=== PATIENT | male | born 2005 | race Caucasian/White ===

== ENCOUNTER 2025-10-09 02:47 | Inpatient (IN) ==
[2025-10-09] MEDS: FAMOTIDINE 20MG IV PUSH 20 MG/5 ML SYR IV STA (03:09)
[2025-10-09] MEDS: ONDANSETRON INJ 2 MG/ML 2 ML VIAL IV STA ×2 (03:09→04:30)
[2025-10-09] MEDS: SODIUM CHLORIDE 0.9% 2,000 ML IV SCH (03:09)
--- NOTE | 2025-10-09 03:17 | Emergency Department Note ---
History of Present Illness General Chief complaint: Vomiting Stated complaint: VOMITING Time Seen by Provider: 10/09/25 02:56 History of Present Illness Maximum Pain Intensity: 8 This 20-year-old who drinks daily presents ER complaining of hematemesis and abdominal pain. Patient states earlier today he was funneling beers and then projectile vomited them. He states shortly after that he developed severe abdominal pain and then tonight he threw up a large amount of blood. The sister took a picture and a video and did show me this. No history of GI bleeding in the past. He also complains of chest pain and has traveled to [facility] and back recently. No family history of clotting disorder. Patient denies fever, chills, leg pain or swelling. He states normally he is healthy with no active medical problems. Allergies Allergy/AdvReac Type Severity Reaction Status Date / Time Penicillins Allergy Swelling Verified 10/09/25 05:10 of Lip/Tongue/Throat Past Med/Surg History Problem List (Updated 10/09/25 @ 15:59 by Cachorro Cardona MD) Gabby-Calabrese tear Encounter for pre-operative examination Alcohol intoxication Acute upper gastrointestinal bleeding (Acute) Medical History ETOH abuse Surgical History (Updated 10/09/25 @ 07:59 by Yasmany Contreras MD) Hx of wisdom tooth extraction Social History Smoking Status: Current some day smoker (vapes) Tobacco Type: E-cigarettes / Vaping Hx Alcohol Use: Yes Alcohol type: hard liquor Hx Substance Use: No Preferred Language: [employer] Chair Required: No Beliefs That Will Affect Care: None Current Living Situation: Other Current Living Situation Comment: 3 roommates (college student) Feels Safe at Home: Yes Assistive Devices: None Review of Systems A total of 10 systems reviewed and were otherwise negative Physical Exam Vital Signs Vital Signs - 24 hr 10/09/25 02:51 10/09/25 03:17 10/09/25 03:22 Temperature 36.7 C Temperature Source Oral Pulse Rate 125 H 87 Pulse Rate [Right Finger] 78 Pulse Rhythm Regular Regular Pulse Rhythm [Right Finger] Regular Pulse Strength Normal Respiratory Rate 18 18 20 Respiratory Effort / Characteristics Non-Labored Spontaneous Non-Labored Respiratory Depth Normal Normal Respiratory Pattern Regular Blood Pressure 113/74 Blood Pressure [Left Arm] 119/69 Blood Pressure Mean 87 Blood Pressure Mean [Left Arm] 85 Blood Pressure Position Sitting Pulse Oximetry 98 100 100 Oxygen Delivery Method Room Air Room Air Room Air Sepsis Recent Fever Within 48 Hours No Sepsis New/Unexplained Change in Mental Status N/A Sepsis Action Taken by Nursing No Action Required 10/09/25 04:00 10/09/25 05:00 10/09/25 05:07 Temperature Temperature Source Pulse Rate 74 Pulse Rate [Right Finger] 75 69 Pulse Rhythm Pulse Rhythm [Right Finger] Regular Regular Pulse Strength Respiratory Rate 16 18 Respiratory Effort / Characteristics Non-Labored Non-Labored Respiratory Depth Normal Normal Respiratory Pattern Blood Pressure Blood Pressure [Left Arm] 129/66 124/83 Blood Pressure Mean Blood Pressure Mean [Left Arm] 87 96 Blood Pressure Position Pulse Oximetry 100 99 Oxygen Delivery Method Room Air Room Air Sepsis Recent Fever Within 48 Hours Sepsis New/Unexplained Change in Mental Status Sepsis Action Taken by Nursing VITALS: Vitals are noted on the nurse's note and reviewed by myself. Vital signs mildly tachycardic. GENERAL: White male speaking in full sentences with sister present, in no acute distress, nondiaphoretic, well-developed well-nourished. SKIN: The skin was without rashes, erythema, edema, or bruising. There is no tenting of the skin. Capillary reflex less than 2 seconds. HEAD: Normocephalic atraumatic. EARS: External auditory canals clear EYES: Pupils equal round and reactive to light and accommodation. Conjunctivae without injection, sclerae without icterus. Extraocular movements intact. NOSE: Patent, no discharge. MOUTH: Mucous membranes moist. Pharynx without erythema or exudate. Uvula midline. Airway patent. Tongue does not deviate. NECK: Supple without nuchal rigidity. No lymphadenopathy. No thyromegaly. Cervical spine is nontender. No JVD. HEART: Regular rate and rhythm LUNGS: Clear to auscultation bilaterally without wheezes, rales or rhonchi. No retractions or accessory muscle use. ABDOMEN: Positive bowel sounds x 4. Normal tympanic percussion. Soft, tender epigastric region, without masses or organomegaly. Wood sign negative. No guarding or rebound tenderness. No CVA tenderness MUSCULOSKELETAL: No muscle atrophy, erythema, or edema noted. NEURO: Patient was alert and oriented to person place and time. Normal sensation to light and sharp touch. No focal neurological deficits. Course Administered Medications Lactated Ringer's (Lr) 1,000 mls @ 75 mls/hr IV .[id number] BARBARA Stop: 10/12/25 05:29 Last Admin: 10/09/25 05:38 Dose: 75 mls/hr Documented By: BELGICA Pantoprazole Sodium (Protonix) 40 mg in 10 mls @ 5 mls/min IV BID BARBARA Stop: 11/08/25 08:59 Last Admin: 10/09/25 20:33 Dose: 5 mls/min Documented By: Admin: 10/09/25 07:59 Dose: 5 mls/min Documented By: WARREN Folic Acid 1 mg/ Syringe 10 mls @ 5 mls/min IV QAM BARBARA Stop: 11/08/25 08:59 Last Admin: 10/09/25 07:59 Dose: 5 mls/min Documented By: WARREN Thiamine HCl 100 mg/ Syringe 10 mls @ 2 mls/min IV QAM BARBARA Stop: 11/08/25 08:59 Last Admin: 10/09/25 07:59 Dose: 2 mls/min Documented By: WARREN Miscellaneous (Icu Protocol For Hyperglycemia) 1 each N/A ACHS BARBARA Stop: 10/11/25 07:29 Last Admin: 10/09/25 20:31 Dose: Not Given Documented By: Admin: 10/09/25 16:35 Dose: Not Given Documented By: Admin: 10/09/25 11:39 Dose: 1 each Documented By: Admin: 10/09/25 07:15 Dose: 1 each Documented By: WARREN Discontinued Medications Sodium Chloride (Nss) 2,000 mls @ 999 mls/hr IV .Q2H1M BARBARA Stop: 10/09/25 05:15 Last Infusion: 10/09/25 05:50 Dose: Infused Documented By: Admin: 10/09/25 03:09 Dose: 999 mls/hr Documented By: BELGICA Famotidine (Pepcid 20mg Iv Push) 20 mg in 5 mls @ 2.5 mls/min IV NOW STA Stop: 10/09/25 03:02 Last Admin: 10/09/25 03:09 Dose: 2.5 mls/min Documented By: BELGICA Pantoprazole Sodium 80 mg/ (Dextrose) 120 mls @ 480 mls/hr IV ONE STA Stop: 10/09/25 03:15 Last Infusion: 10/09/25 03:46 Dose: Infused Documented By: Admin: 10/09/25 03:25 Dose: 480 mls/hr Documented By: BELGICA Potassium Chloride (K Miguel / Wtr) 10 meq in 100 mls @ 100 mls/hr IV Q1H BARBARA Stop: 10/09/25 05:59 Last Infusion: 10/09/25 06:19 Dose: Infused Documented By: [id number] Admin: 10/09/25 05:16 Dose: 100 mls/hr Documented By: Infusion: 10/09/25 05:16 Dose: Infused Documented By: Admin: 10/09/25 04:17 Dose: 100 mls/hr Documented By: BELGICA Lactated Ringer's (Lr) 1,000 mls @ 999 mls/hr IV .Q1H1M ONE Stop: 10/09/25 05:01 Last Infusion: 10/09/25 06:19 Dose: Infused Documented By: [id number] Admin: 10/09/25 04:09 Dose: 999 mls/hr Documented By: BELGICA Ceftriaxone Sodium (Rocephin) 2,000 mg in 50 mls @ 100 mls/hr IV NOW STA Stop: 10/09/25 05:31 Last Infusion: 10/09/25 05:49 Dose: Infused Documented By: Admin: 10/09/25 05:19 Dose: 100 mls/hr Documented By: BELGICA Octreotide Acetate 500 mcg/ (Dextrose) 100.5 mls @ 10.05 mls/hr IV .Q10H BARBARA Stop: 11/08/25 05:14 Last Admin: 10/09/25 05:45 Dose: Not Given Documented By: ZAHEER Octreotide Acetate 50 mcg/ (Syringe) 10 mls @ 3 mls/min IV NOW STA Stop: 10/09/25 05:06 Last Admin: 10/09/25 05:44 Dose: Not Given Documented By: ZAHEER Magnesium Sulfate/Dextrose (Magnesium Sulfate / D5w) 1 gm in 100 mls @ 100 mls/hr IV Q1H BARBARA Stop: 10/09/25 07:24 Last Infusion: 10/09/25 08:12 Dose: Infused Documented By: Admin: 10/09/25 06:43 Dose: 100 mls/hr Documented By: [id number] Infusion: 10/09/25 06:39 Dose: Infused Documented By: [id number] Admin: 10/09/25 05:39 Dose: 100 mls/hr Documented By: BELGICA Magnesium Sulfate/Dextrose (Magnesium Sulfate / D5w) 1 gm in 100 mls @ 50 mls/hr IV Q2H BARBARA Stop: 10/09/25 11:59 Last Infusion: 10/09/25 13:26 Dose: Infused Documented By: Admin: 10/09/25 11:01 Dose: 50 mls/hr Documented By: Infusion: 10/09/25 10:42 Dose: Infused Documented By: Infusion: 10/09/25 09:56 Dose: 50 mls/hr Documented By: Infusion: 10/09/25 09:12 Dose: 0 mls/hr Documented By: Admin: 10/09/25 07:58 Dose: 50 mls/hr Documented By: WARREN Potassium Chloride (K Miguel / Wtr) 10 meq in 100 mls @ 100 mls/hr IV Q1H BARBARA Stop: 10/09/25 09:14 Last Infusion: 10/09/25 11:06 Dose: Infused Documented By: Admin: 10/09/25 09:57 Dose: 100 mls/hr Documented By: Infusion: 10/09/25 08:32 Dose: Infused Documented By: Admin: 10/09/25 07:32 Dose: 100 mls/hr Documented By: Infusion: 10/09/25 07:30 Dose: Infused Documented By: Admin: 10/09/25 06:30 Dose: 100 mls/hr Documented By: [id number] Ioversol (Optiray 320 125ml) 118 ml IV ONCE ONE Stop: 10/09/25 03:39 Last Admin: 10/09/25 03:38 Dose: 118 ml Documented By: KSF Metoclopramide HCl (Metoclopramide Hcl Inj 5 Mg/Ml 2 Ml Vial) 10 mg IV NOW STA Stop: 10/09/25 05:52 Last Admin: 10/09/25 06:30 Dose: 10 mg Documented By: [id number] Ondansetron HCl (Ondansetron Inj 2 Mg/Ml 2 Ml Vial) 4 mg IV ONE STA Stop: 10/09/25 03:02 Last Admin: 10/09/25 03:09 Dose: 4 mg Documented By: BELGICA Ondansetron HCl (Ondansetron Inj 2 Mg/Ml 2 Ml Vial) 4 mg IV NOW STA Stop: 10/09/25 04:28 Last Admin: 10/09/25 04:30 Dose: 4 mg Documented By: ZAHEER Critical Care Time Critical Care Time: Yes Total Critical Care Time: 65 I have personally spent 65 minutes of critical care time in the direct management of this patient. This includes bedside care, interpretation of diagnostic studies, and testing, discussion with consultants, patient, and family members, and other required patient management activities. This 65 minutes is in excess of all separately billable procedures. Medical Decision Making Medical Records Attestation: I reviewed the patient's medical records. Home Medications Current Medication List: was personally reviewed by me Laboratory Data Attestation: I reviewed the patient's lab results. 10/09/25 04:06 10/09/25 03:08 Lab Results 10/09/25 10/09/25 10/09/25 Range/Units 03:08 03:13 04:06 WBC 14.86 H (4.8-10.8) K/ul RBC 4.69 L (4.70-6.10) M/uL Hgb 15.0 11.4 L D (14.0-18.0) g/dL POC Hgb 15.3 (14.0-18.0) g/dl Hct 41.8 L 32.7 L (42.0-52.0) % POC Hct 45 (42-52) % MCV 89.1 (80.0-100.0) fL MCH 32.0 (25.0-34.0) pg MCHC 35.9 (32.0-36.0) g/dL RDW Std Deviation 38.8 (36.4-46.3) fL RDW Coeff of Melony 12.0 (11.5-14.5) % Plt Count 303 (130-400) K/uL MPV 9.4 (9.4-12.4) fL Immature Gran % (Auto) 0.3 % Neut % (Auto) 75.9 % Lymph % (Auto) 15.7 % [place] % (Auto) 6.5 % Eos % (Auto) 1.3 % Baso % (Auto) 0.3 % Neut # (Auto) 11.26 H (1.40-6.50) K/uL Lymph # (Auto) 2.33 (1.20-3.40) K/uL [place] # (Auto) 0.97 H (0.11-0.59) K/uL Eos # (Auto) 0.20 (0.00-0.50) K/uL Baso # (Auto) 0.05 (0.00-0.20) K/uL Immature Gran # (Auto) 0.05 (0.01-0.20) K/uL PT 10.7 (9.0-12.0) Seconds INR 1.0 (0.9-1.1) APTT 25 (21-31) Seconds PTT Ratio 0.9 POC Sodium 141 (135-144) mmol/L Sodium 139 (136-145) mmol/L POC Potassium 3.3 (3.3-5.0) mmol/L Potassium 3.4 L (3.5-5.1) mmol/L POC Chloride 104 (101-112) mmol/L Chloride 104 (98-107) mmol/L Carbon Dioxide 19 L (21-32) mmol/L POC Total CO2 19 L (24-31) mmol/L Anion Gap 16 H (3-11) POC Anion Gap 23.0 (16-25) mmol/L POC BUN 23 H (7-18) mg/dl BUN 22 (6-23) mg/dl Creatinine 0.99 (0.6-1.4) mg/dl POC Creatinine 1.3 (0.6-1.3) mg/dl Est Cr Clr Drug Dosing 113.2 ml/min eGFR 111.15 BUN/Creatinine Ratio 22.2 H (10-20) Glucose 97 (70-99(Fasting)) mg/dl POC Glucose (other) 96 (70-99) mg/dl Calcium 10.0 (8.6-10.3) mg/dl POC Ioniz Calcium Abrahan 1.06 L (1.12-1.32) mmol/l Magnesium 1.5 L (1.7-2.4) mg/dl Total Bilirubin 0.6 (0.2-1.0) mg/dl AST 33 (13-39) U/L ALT 36 (7-52) U/L Alkaline Phosphatase 57 (34-104) U/L Troponin I High Sens < 2.3 (0-20) pg/ml Total Protein 8.3 (6.0-8.3) gm/dl Albumin 5.0 (3.4-5.0) gm/dl Globulin 3.3 (2.5-4.0) gm/dl Albumin/Globulin Ratio 1.5 (0.9-2) Lipase 19 (11-82) U/L Ethyl Alcohol mg/dL 71.0 H (<10.0) mg/dl Blood Type A Positive Antibody Screen NEGATIVE Imaging Data Attestation: I personally reviewed and interpreted this imaging study as follows: Radiologist's Impression: Abdomen/Pelvis CT 10/09/25 03:01 EXAM: CT abd pelvis IV con only CLINICAL HISTORY: Severe epigastric pain, hematemesis TECHNIQUE: Contiguous axial images were obtained from the level of the diaphragm to the pubic symphysis with intravenous contrast. Coronal and sagittal reconstructions were likewise performed and indicated to increase the sensitivity for detecting clinically relevant pathology. If IV contrast material had not been administered, the likelihood of detecting abnormalities relevant to the patient's condition would have been substantially decreased. CT scan was performed according to ALARA (as low as reasonably achievable). COMPARISON: None. FINDINGS: The visualized lung bases are clear. The liver is normal in size and attenuation. No focal liver lesions are seen. There is no intra or extrahepatic biliary ductal dilatation. Hepatic vasculature is patent. The gallbladder is present. The spleen, pancreas, and adrenal glands are unremarkable. The kidneys are normal in size and attenuation. There is no hydronephrosis or perinephric fat stranding. No renal calculi or renal masses are identified. The ureters are normal in caliber and no ureteral calculi are seen. The bladder is normal in contour. Pelvic viscera are unremarkable. No focal or diffuse bowel wall thickening or evidence of bowel obstruction is identified. No imaging evidence of appendicitis. Abdominal and pelvic vasculature is patent. No adenopathy or fluid collections are seen. No aggressive appearing osseous lesions are identified. Mild mucosal edema is noted involving gastric cardia and adjacent to the gastroesophageal junction. - possibility of inflammatory changes. IMPRESSION: Mild mucosal edema is noted involving gastric cardia and adjacent to the gastroesophageal junction. - possibility of inflammatory changes. No other acute intra abdominal abnormality seen. Electronically signed by Wale Robles 10-09-2025 04:24 AM Chest CTA 10/09/25 03:01 EXAM: CT angio chest PE protocol CLINICAL HISTORY: PE, recent travel, hematemesis TECHNIQUE: Contiguous axial images were obtained from the neck base through the upper abdomen following intravenous administration of iodinated contrast material. Angiographic images were processed, 3D MIP images were acquired for interpretation. If IV contrast material had not been administered, the likelihood of detecting abnormalities relevant to the patient's condition would have been substantially decreased. Coronal and sagittal 3-D MIPs were likewise performed and indicated to increase the sensitivity of detectin diffuse clinically relevant pathology. CT scan was performed according to ALARA (as low as reasonably achievable). COMPARISON: None. FINDINGS: Adequate contrast bolus without evidence of pulmonary embolism. The central airways are patent. The lungs are clear. No pleural effusion. The heart, aorta, and pulmonary arteries are of normal size and configuration. There are no appreciable coronary artery and aortic atherosclerotic calcifications. No pericardial effusion is identified. The thyroid is unremarkable. No mediastinal, hilar, or axillary lymphadenopathy is noted. No suspicious lytic or sclerotic osseous lesions are identified. IMPRESSION: 1. No evidence of pulmonary embolism or pulmonary disease. 2. Suggestion of edematous wall thickening of lower thoracic oesophagus and gastro-esophageal junction. Electronically signed by Wale Robles 10-09-2025 04:28 AM Chest X-Ray 10/09/25 03:01 EXAM: XR chest 1V portable CLINICAL HISTORY: Hematemesis TECHNIQUE: An X-ray image of the chest is obtained in AP projection. 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 FINDINGS: Pulmonary Parenchyma: Lungs are clear bilaterally. No evidence of consolidation, collapse, or focal opacities. No pulmonary nodules are identified. No evidence of pleural effusion or pleural thickening. Heart and Mediastinum: Heart size and shape are normal. No mediastinal widening or masses. No hilar or mediastinal lymphadenopathy. Bony Thorax: Bony thorax appears intact without fractures or deformities. Soft Tissues: Soft tissues overlying the chest wall are unremarkable. IMPRESSION: No acute cardiopulmonary abnormalities are identified. No significant interval changes from the prior study. Electronically signed by Ángel Lindo 10-09-2025 04:40 AM MDM Narrative Prior records/ancillary studies reviewed. Triage Nursing notes reviewed. Additional history obtained from the family. The patient's history was concerning for possible gastrointestinal bleeding. Differential diagnosis: Etiologies such as diverticulosis, AVM, coagulopathy, colitis, inflammatory bowel disease, malignancy, Gabby-Calabrese tear, esophagitis, peptic ulcer disease, variceal bleed, gastritis, epistaxis, fissure, hemorrhoids, as well as others were entertained. Physical exam: As above. The patients vital signs were stable. ER treatment provided: An order was placed for continuous cardiac monitoring. The monitor shows a rate of 60-1 20 with a sinus rhythm per my interpretation. 2 IV lines, i-STAT, type and screen, patient was consented to blood if warranted, Protonix, Pepcid, Zofran were all ordered Patient was also given octreotide and Rocephin. He was then crossmatched for unit of blood after repeat H&H was much lower. I spoke to CAT scan and informed them I was worried about Boerhaave's, active stomach ulcer bleeding, PE or active bleeding. On reassessment the patient felt better. Diagnostics interpreted by me: ECG: Ordered for GI bleed Normal sinus, poor baseline, no acute ST-T wave changes, rate 85. Impression normal sinus rhythm poor baseline independently interpreted by myself The labs Independently Interpreted by myself revealed leukocytosis, stable H&H, potassium 3.4 and this is replaced intravenously, negative troponin, alcohol 71 Type and screen was sent Repeat H&H was much lower and I did notify the resident and she will write for a unit of blood. Imaging studies: Imaging was reviewed and read by radiology Consultation: A consultation was placed with the hospitalist. The case was discussed and diagnostics were reviewed. The patient was evaluated in the ER for further treatment. Consultation was placed with GI and the case discussed. Dr. Delaney would like to be called back once the imaging has been read by radiology. Scans were reviewed with GI and recommends medical admission to the unit and will scope the patient in the morning. NPO. Continue the Protonix and Pepcid. The ICU was consulted and the case was discussed. Paulette will come down and see the patient. This appears to be consistent with upper GI bleed with active hematemesis most likely from Gabby-Calabrese tear. Patient had a large amount of hematemesis in the ER. He also had a large amount at home. He was immediately started on Protonix Pepcid Zofran and IV fluids. 2 lines were placed. I-STAT was ordered. He was typed and screened and crossmatch for blood if warranted. He was consented. Repeat H&H was ordered. He was reassessed multiple times. Vital signs improved. GI was consulted immediately after seeing the patient. GI recommends medical admission to the unit for endoscopy in the morning. Unit and medicine were consulted. Patient was admitted to the medical service. Patient is agreeable. By the evaluation outlined above emergent etiologies such as esophageal perforation, variceal bleed, coagulopathy, epistaxis, malignancy, inflammatory bowel disease, as well as others were deemed relatively unlikely. The pt informed about the findings as listed above. All questions were answered and pleased with the treatment. The chart was completed utilizing [employer] Speech voice recognition software. Grammatical errors, random word insertions, pronoun errors, and incomplete sentences are an occassional consequence of this system due to software limitations, ambient noise, and hardware issues. Any formal questions or concerns about the content, text, or information contained within the body of this dictation should be directly addressed to the physician hospital nursing assistant for clarification. Impression & Plan Acute upper gastrointestinal bleeding Discharge Plan Visit Data Chief Complaint: Vomiting Stated Complaint: VOMITING ED Provider: Elmo Moon ED Midlevel Provider: Trinidad Martínez Discharge Problem: Acute upper gastrointestinal bleeding Patient Disposition: Admitted As Inpatient Condition: Fair Discharge Instructions Interventions: ED Discharge Assessment Last Done: 10/09/25 06:35
[2025-10-09 03:28] LABS: Hematocrit (blood only) 41.8 % (42.0-52.0); Hemoglobin 15.0 g/dL (14.0-18.0); Immature Granulocytes # (auto) 0.05 K/uL (0.01-0.20); Immature Granulocytes % (auto) 0.3 %; Mean Corpuscular Hemoglobin 32.0 pg (25.0-34.0); Mean Corpuscular Volume 89.1 fL (80.0-100.0); Platelet Count 303 K/uL (130-400); RDW Standard Deviation 38.8 fL (36.4-46.3); Red Blood Count 4.69 M/uL (4.70-6.10); White Blood Count 14.86 K/ul (4.8-10.8)
[2025-10-09] MEDS: OPTIRAY 320 125ml IV ONE (03:38)
[2025-10-09 03:46] LABS: Alanine Aminotransferase 36 U/L (7-52); Albumin Globulin Ratio 1.5 (0.9-2); Albumin Level 5.0 gm/dl (3.4-5.0); Alkaline Phosphatase 57 U/L (34-104); Anion Gap 16 (3-11); Bilirubin,Total 0.6 mg/dl (0.2-1.0); Blood Urea Nitrogen 22 mg/dl (6-23); Calcium 10.0 mg/dl (8.6-10.3); Carbon Dioxide 19 mmol/L (21-32); Chloride 104 mmol/L (98-107); Creatinine Clr Calc Pharmacy 113.2 ml/min; Globulin 3.3 gm/dl (2.5-4.0); Glucose 97 mg/dl (70-99(Fasting)); Lipase 19 U/L (11-82); Potassium 3.4 mmol/L (3.5-5.1); Sodium 139 mmol/L (136-145); Total Protein 8.3 gm/dl (6.0-8.3)
[2025-10-09 04:09] LABS: INR 1.0 (0.9-1.1); Partial Thromboplastin Time 25 Seconds (21-31); Prothrombin Time 10.7 Seconds (9.0-12.0)
[2025-10-09] MEDS: LACTATED RINGER'S 1,000 ML IV ONE (04:09)
[2025-10-09] MEDS: POTASSIUM CHLORIDE / WTR 10 MEQ/100 ML PLCT IV SCH ×2 (04:17→06:30)
--- NOTE | 2025-10-09 04:25 | CT Scan Report ---
EXAM: CT abd pelvis IV con only CLINICAL HISTORY: Severe epigastric pain, hematemesis TECHNIQUE: Contiguous axial images were obtained from the level of the diaphragm to the pubic symphysis with intravenous contrast. Coronal and sagittal reconstructions were likewise performed and indicated to increase the sensitivity for detecting clinically relevant pathology. If IV contrast material had not been administered, the likelihood of detecting abnormalities relevant to the patient's condition would have been substantially decreased. CT scan was performed according to ALARA (as low as reasonably achievable). COMPARISON: None. FINDINGS: The visualized lung bases are clear. The liver is normal in size and attenuation. No focal liver lesions are seen. There is no intra or extrahepatic biliary ductal dilatation. Hepatic vasculature is patent. The gallbladder is present. The spleen, pancreas, and adrenal glands are unremarkable. The kidneys are normal in size and attenuation. There is no hydronephrosis or perinephric fat stranding. No renal calculi or renal masses are identified. The ureters are normal in caliber and no ureteral calculi are seen. The bladder is normal in contour. Pelvic viscera are unremarkable. No focal or diffuse bowel wall thickening or evidence of bowel obstruction is identified. No imaging evidence of appendicitis. Abdominal and pelvic vasculature is patent. No adenopathy or fluid collections are seen. No aggressive appearing osseous lesions are identified. Mild mucosal edema is noted involving gastric cardia and adjacent to the gastroesophageal junction. - possibility of inflammatory changes. IMPRESSION: Mild mucosal edema is noted involving gastric cardia and adjacent to the gastroesophageal junction. - possibility of inflammatory changes. No other acute intra abdominal abnormality seen. Electronically signed by Wale Robles 10-09-2025 04:24 AM
--- NOTE | 2025-10-09 04:29 | CT Scan Report ---
EXAM: CT angio chest PE protocol CLINICAL HISTORY: PE, recent travel, hematemesis TECHNIQUE: Contiguous axial images were obtained from the neck base through the upper abdomen following intravenous administration of iodinated contrast material. Angiographic images were processed, 3D MIP images were acquired for interpretation. If IV contrast material had not been administered, the likelihood of detecting abnormalities relevant to the patient's condition would have been substantially decreased. Coronal and sagittal 3-D MIPs were likewise performed and indicated to increase the sensitivity of detectin diffuse clinically relevant pathology. CT scan was performed according to ALARA (as low as reasonably achievable). COMPARISON: None. FINDINGS: Adequate contrast bolus without evidence of pulmonary embolism. The central airways are patent. The lungs are clear. No pleural effusion. The heart, aorta, and pulmonary arteries are of normal size and configuration. There are no appreciable coronary artery and aortic atherosclerotic calcifications. No pericardial effusion is identified. The thyroid is unremarkable. No mediastinal, hilar, or axillary lymphadenopathy is noted. No suspicious lytic or sclerotic osseous lesions are identified. IMPRESSION: 1. No evidence of pulmonary embolism or pulmonary disease. 2. Suggestion of edematous wall thickening of lower thoracic oesophagus and gastro-esophageal junction. Electronically signed by Wale Robles 10-09-2025 04:28 AM
--- NOTE | 2025-10-09 04:40 | XRay Report ---
EXAM: XR chest 1V portable CLINICAL HISTORY: Hematemesis TECHNIQUE: An X-ray image of the chest is obtained in AP projection. COMPARISON: CT angio chest done earlier at the same date 10/09/2025 02:26:15 ASSISTANT ADMINISTRATOR. FINDINGS: Pulmonary Parenchyma: Lungs are clear bilaterally. No evidence of consolidation, collapse, or focal opacities. No pulmonary nodules are identified. No evidence of pleural effusion or pleural thickening. Heart and Mediastinum: Heart size and shape are normal. No mediastinal widening or masses. No hilar or mediastinal lymphadenopathy. Bony Thorax: Bony thorax appears intact without fractures or deformities. Soft Tissues: Soft tissues overlying the chest wall are unremarkable. IMPRESSION: No acute cardiopulmonary abnormalities are identified. No significant interval changes from the prior study. Electronically signed by Ángel Lindo 10-09-2025 04:40 AM
--- NOTE | 2025-10-09 04:46 | Critical Care Consultation ---
<Statement entered by Cachorro Cardona MD - 10/09/25 07:04> I, Cachorro Cardona MD, reviewed the physical exam, assessment, plan, and management as documented by the Advanced Care Provider Paulette Bullard PA-C, for this patient encounter. I discussed the case with them, confirmed the findings, and I concur with the proposed plan of care. I was available for consultation throughout the encounter and provided guidance as needed. Date of Consultation October 09, 2025 Assessment & Plan (1) Acute upper gastrointestinal bleeding: (2) Alcohol intoxication: Plan Reason Critically Ill: 1. Acute upper GI bleeding 2. Alcohol intoxication with daily use Neuro - CAM ICU: Negative RASS GOAL 0 ETOH level is 71 at this time, considered high risk for withdrawal Thiamine, folic acid, MVI APAP PRN pain/fever Cardiac - No acute concerns MAP goal > 65mmHg Admit EKG NSR with sinus arrhythmia Gentle IVF while NPO Respiratory - HOB 30, aspiration precautions SpO2 goal > 92% IS/Flutter GI - GI on board, plan for scope today No cirrhosis or varices on imaging, no current indication for octreotide Diet: NPO SUP: PPI BID Bowel regimen: PRN RENAL/LYTES - No acute concerns Replete electrolytes as indicated No indication for Simpson Gentle IVF Maintain net even to net negative ENDO - BG 140-180 per SCCM guidelines ISS if needed while inpatient HEME - Trend H/H ID - No acute concerns No esophageal rupture on CT, no indication for fungal or antibacterial coverage at this time LINES/TUBES/DRAINS - PIV x2 DVT PROPHYLAXIS - Contraindicated CODE STATUS - FULL DISPOSITION - ICU pending EGD I have personally spent 35 minutes of critical care time in the direct management of this patient. This is a life/limb threatening event. This includes time spent evaluating patient, direct bedside care, chart review, placing orders, interpretation of diagnostic studies, discussion with consultants, patient, and family members, as well as other required patient management activities. This time is exclusive of all separately billable procedures, and teaching time and separate from and in addition to any other critical care service time. Thank you for allowing us to participate in the care of this patient. Please refer to my attending physician's documentation for any further recommendations. History of Present Illness Reason for Consultation: GI Bleeding Requesting Physician: ED/GI Attending Physician: Hospitalist History of Present Illness Mr. Ezequiel Marie is a 20YOM with no significant past medical history who presented to [facility] [place] on 10/09/2025 due to abdominal pain, chest pain, and hematemesis. He reportedly had large volume hematemesis prior to arrival. Patient also had hematemesis during ED course. Work-up revealed HGB 15, leukocytosis, AGMA likely 2/2 H- loss with emesis, ETOH 71. Imaging notable for lower esophageal/GE junction thickening. Per ED, patient was admitted to ICU at the recommendation of Gastroenterology pending a possible EGD. Patient seen in ICU 108. He is hemodynamically stable, non-tachycardic. No distress, non-toxic appearing. Saturating well on room air. Had two episodes of hematemesis total - 1 at home and 1 in ED with retching. He admits to smoking cigarettes and vaping nicotine occasionally. Patient had told another provider that he ingests alcohol daily, reportedly up to 20 beers and 5 shots of whiskey. Patient tells me up to 5 drinks a day up to 5 days a week. He denies symptoms of withdrawal in the past. ROS + chest pain, nausea, anxiety, though all of these are now resolved. Allergies Allergy/AdvReac Type Severity Reaction Status Date / Time Penicillins Allergy Swelling Verified 10/09/25 05:10 of Lip/Tongue/Throat Patient History Social History Smoking Status: Current every day smoker Preferred Language: Upper Sorbian Feels Safe at Home: Yes Review of Systems Review of Systems: All systems reviewed & are unremarkable except as noted in Subjective Physical Exam Constitutional: WD/WN, vitals as above Eyes: PERRL, conjunctivae normal, anicteric sclerae ENMT: external ear and nose normal, oropharynx normal Neck: trachea midline, no thyromegaly No crepitus Respiratory: normal respiratory effort, lungs clear to auscultation Cardiovascular: RRR, no murmur, no edema Gastrointestinal (Abdomen): Inspection/Auscultation: abdomen normal to inspection and normal bowel sounds Percussion/Palpation: abdomen soft; abdomen nontender, no guarding and abdomen not rigid Musculoskeletal: no cyanosis or clubbing, extremities motor strength 5/5 Skin: no rashes, warm and dry Normal turgor, capillary refill < 3 seconds Neurologic: PERRL, EOMI, accommodation nl, no face palsy, no dysarthria Psychiatric: Anxious Genitourinary: Deferred Results & Data Results & Data Vital Signs (Past 12 Hours) Vital Signs Temp Pulse Pulse Resp BP BP Pulse Ox 10/09/25 04:00 75 16 129/66 100 10/09/25 03:22 87 20 100 10/09/25 03:17 78 18 119/69 100 10/09/25 02:51 36.7 C 125 H 18 113/74 98 O2 Del Method 10/09/25 04:00 Room Air 10/09/25 03:22 Room Air 10/09/25 03:17 Room Air 10/09/25 02:51 Room Air Laboratory Results Reviewed Diagnostic Findings Reviewed Medications Administered See MAR Coding Level of Care Code 42460 IN/OBS CONSULT LVL 2,35M Diagnoses Acute upper gastrointestinal bleeding K92.2 Alcohol intoxication F10.929 Time Spent (min) 35
[2025-10-09] MEDS ORDERED: STAT IV/IM STA (05:02)
[2025-10-09 05:04] LABS: Hematocrit (blood only) 32.7 % (42.0-52.0); Hemoglobin 11.4 g/dL (14.0-18.0)
[2025-10-09] MEDS: cefTRIAXone SODIUM 2,000 MG/50 ML BAG IV STA (05:19)
--- NOTE | 2025-10-09 05:33 | History & Physical Report ---
Date of Service October 09, 2025 Assessment & Plan (1) Alcohol intoxication: (2) Acute upper gastrointestinal bleeding: Patrice Nieves is a 20 y/o male with no significant PMH that presented today due to hematemesis. Patient states having drinks tonight with some friends. Around 8 pm patient had an emeses after funneling beers. Symptoms persistent after the episode and he had a massive hematemesis in his room. He stated having abdominal pain, and chest discomfort. Patient was brought here by some friends. No family history of clotting disorder. He sates he took two Advil yesterday. No previous history of GI bleed or black stools. No daily medications. Denied any use of c ontrolled substance or cigarette smoking. He does states drink alcohol on a daily basis. On evaluation denied any chest pain, states that he still feels a little dizzy, no nausea. Patient will be admitted for endoscopy and further treatment #Hematemesis - Abrupt onset of large amount of hematemesis after an episode of vomit. - Patient received 2 L of NSS, 80 ml of Protonix, IV Zofran - Hemodynamically stable. Hgb 15 on arrival. K: 3.4 Mag 1.4. elevated BUN/Creatinine ratio: 22.2 - GI consulted, appreciated recommendations. concerns of Gabby Calabrese - Will admit to ICU - Chest CTA: Wall thickening of lower thoracis esophagus. - AP CT: mucosa edema involving gastric cardia - Keep NPO - Hgb on arrival 15 repeat 11 after IV fluids. - Ceftriaxone given in ED - Potassium and magnesium replaced in the ED - H/H in 4 hours. Pending fecal occult - Protonix 40 mg BID - Consent on chart, Type and Cross. Patient with 3 IV access - Lab tomorrow morning - plan for scope by GI later this morning #alcohol use - heavy daily drinker. - States drinks more than 20 beers as well as shots of whiskey daily (around 4- 5) - ETOH level 71. Normal liver enzymes. - VERA ordered - Daily IV thiamine and folic acid, multivitamin - Encourage drinking cessation DVT prophylaxis: Chemical prophylaxis not indicated due to GI bleed Dispo: ICU History of Present Illness Primary Care Provider: [facility] Ezequiel is a 20 y/o male with no significant PMH that presented today due to hematemesis. Patient states having drinks tonight with some friends. Around 8 pm patient had an emeses after funneling beers. Symptoms persistent after the episode and he had a massive hematemesis in his room. He stated having abdominal pain, and chest discomfort. Patient was brought here by some friends. No family history of clotting disorder. He sates he took two Advil yesterday. No previous history of GI bleed or black stools. No daily medications. Denied any use of controlled substance or cigarette smoking. He does states drink alcohol on a daily basis. On evaluation denied any chest pain, states that he still feels a little dizzy, no nausea. Patient will be admitted for endoscopy and further treatment. He goes to [employer]. Denied any fever, diarrhea, palpitations, headaches. Allergies Allergy/AdvReac Type Severity Reaction Status Date / Time Penicillins Allergy Swelling Verified 10/09/25 05:10 of Lip/Tongue/Throat Past Med/Surg History Problem List (Updated 10/09/25 @ 15:59 by Cachorro Cardona MD) Gabby-Calabrese tear Encounter for pre-operative examination Alcohol intoxication Acute upper gastrointestinal bleeding (Acute) Medical History ETOH abuse Surgical History (Updated 10/09/25 @ 07:59 by Yasmany Contreras MD) Hx of wisdom tooth extraction Social History Smoking Status: Current some day smoker (vapes) Tobacco Type: E-cigarettes / Vaping Hx Alcohol Use: Yes Alcohol type: hard liquor Hx Substance Use: No Preferred Language: Armenian Oral Health Therapist Required: No Beliefs That Will Affect Care: None Current Living Situation: Other Current Living Situation Comment: 3 roommates (college student) Feels Safe at Home: Yes Assistive Devices: None Review of Systems Review of Systems: as per hpi Physical Exam Constitutional: well developed and well nourished; no acute distress Eyes: PERRL, conjunctivae normal, anicteric sclerae Respiratory: normal respiratory effort, lungs clear to auscultation Cardiovascular: RRR, no murmur, no edema Gastrointestinal (Abdomen): Inspection/Auscultation: normal bowel sounds Percussion/Palpation: + abdomen tender (Mild epigastric tenderness) and abdomen soft; no guarding and abdomen not rigid Skin: no rashes, warm and dry Results & Data Results & Data Vital Signs (Past 12 Hours) Vital Signs Temp Pulse Pulse Resp BP BP Pulse Ox 10/09/25 05:07 74 10/09/25 05:00 69 18 124/83 99 10/09/25 04:00 75 16 129/66 100 10/09/25 03:22 87 20 100 10/09/25 03:17 78 18 119/69 100 10/09/25 02:51 36.7 C 125 H 18 113/74 98 O2 Del Method 10/09/25 05:07 10/09/25 05:00 Room Air 10/09/25 04:00 Room Air 10/09/25 03:22 Room Air 10/09/25 03:17 Room Air 10/09/25 02:51 Room Air Critical Care Time 48 minutes Supervising Physician Co-Signing Physician Notes Attending addendum: I have physically seen this patient, have supervised the medical residents activities, and agree with the H&P unless as otherwise noted. Assessment and Plan: The patient is a 20-year-old male with no significant past medical history who presented to the emergency department due to hematemesis. He reports having drinks tonight with some friends. Around 8 PM this evening he had emesis. He then developed abdominal pain and chest discomfort, and was brought to the emergency department by friends. He did take 2 Advil yesterday. He had no previous history of GI bleeding and no family history of GI bleeding. He reports drinking on a daily basis. Hematemesis- Admission to ICU From the ED received 2 L normal saline fluid bolus, Protonix 80 mg IV, and Zofran 4 mg IV. Hemoglobin initially 15 on arrival, and decreased to 11.4 on follow-up labs CT angiography of chest showed wall thickening of the lower thoracic esophagus CT abdomen pelvis showed mucosal edema involving the gastric cardia N.p.o. Ceftriaxone 2 g IV daily Pantoprazole 40 mg IV twice daily H&H every [address] Delaney has been consulted Alcohol use disorder- Patient is a heavy daily drinker Reports drinking more than 20 beers as well as shots of whiskey daily Alcohol level 71 on admission with normal LFTs AWSS protocol Thiamine and folic acid IV Alcohol cessation counseling Resident Activity Tracking Resident Involvement: Resident Care Provided Care Provided: Adult Hospital Medicine
[2025-10-09] MEDS: LACTATED RINGER'S 1,000 ML IV SCH (05:38)
[2025-10-09] MEDS: MAGNESIUM SULFATE / D5W 1 GM/100 ML BAG IV SCH ×2 (05:39→07:58)
[2025-10-09] MEDS: OCTREOTIDE ACETATE 50 MCG in SYRINGE 9.5 ML IV STA (05:44)
[2025-10-09] MEDS: OCTREOTIDE ACETATE 500 MCG in DEXTROSE 5% 100 ML IV SCH (05:45)
[2025-10-09] MEDS ORDERED: ONDANSETRON INJ 2 MG/ML 2 ML VIAL IV PRN (06:17)
[2025-10-09] MEDS: METOCLOPRAMIDE HCL INJ 5 MG/ML 2 ML VIAL IV STA (06:30)
--- NOTE | 2025-10-09 07:10 | Gastrointestinal Consultation ---
Date of Consultation October 09, 2025 Assessment & Plan (1) Acute upper gastrointestinal bleeding: Significant upper GI bleeding with some hemodynamic instability resolved with IV fluids significant emesis both at home and per ER twice there. Hemoglobin dropped by 4 g. Imaging findings consistent with Gabby-Calabrese. Based on severity of bleeding plan EGD. Will ask anesthesia to provide airway protection. Patient is grouped on cross. Risks of the procedure which include further bleeding esophageal injury perforation aspiration all reviewed with the patient agreeable. Has given consent for me to speak to his mother Pauline. Cell phone called no answer message left. Reviewed excess alcohol intake with recommend abstinence or reduction. Anticipate 36-hour admission potential discharge tomorrow based on endoscopic findings and clinical course. (2) Alcohol intoxication: Alcohol level currently 74 mg/dL from over 300 a.m. History of Present Illness Reason for Consultation: Hematemesis Requesting Physician: Dr. 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 Recently traveling to [place] and now returns with fairly significant alcohol ingestion yesterday including drinking beer through a funnel. He had emesis following this. Did not feel well ingested to further alcohol drinks and subsequently began vomiting blood. Said moderate to large amount of blood at home. ER notes 2 episodes of emesis in the emergency room. Patient however relates that these were the same episode just filled up to bags. No emesis for the last couple of hours. Significant drop in his hemoglobin from 15-11. Some hemodynamic changes on admission with tachycardia. This also could have a component of anxiety. Patient is alcohol level 0.7. Platelets normal INR normal. CT scan shows normal liver and spleen. There is edema along the GE junction and lower thoracic esophagus, on CT of the abdomen pelvis the edema is said to involve the gastric cardia also. Patient seen in the intensive care unit. Currently appears hemodynamically stable. With stabilization occurring last hour or 2. Patient alert and orientated does not appear in acute distress. Patient's girlfriend present at the bedside. Of note patient states some epigastric and chest discomfort at beginning of episode. Currently pain-free. Allergies Allergy/AdvReac Type Severity Reaction Status Date / Time Penicillins Allergy Swelling Verified 10/09/25 05:10 of Lip/Tongue/Throat Patient History Social History Smoking Status: Current some day smoker Tobacco Type: E-cigarettes / Vaping Hx Alcohol Use: Yes Alcohol type: hard liquor Hx Substance Use: No Preferred Language: Maltese Rf Test Engineer Required: No Beliefs That Will Affect Care: None Current Living Situation: Other Current Living Situation Comment: 3 roommates (college student) Feels Safe at Home: Yes Assistive Devices: None Review of Systems Review of Systems: Currently denying chest pain. No shortness of breath no abdominal pain. No headache Review systems otherwise negative Physical Exam Physical Exam: Healthy-appearing 20-year-old male in no acute distress Vital stable afebrile Chest clear no subcutaneous edema or crepitus. Heart sounds normal Abdomen benign No jaundice No edema Does not appear anxious. Results & Data Vital Signs (Past 12 Hours) Vital Signs Temp Pulse Pulse Resp BP BP Pulse Ox 10/09/25 06:35 68 18 129/74 98 10/09/25 06:26 36.9 C 77 16 134/67 96 10/09/25 06:17 36.8 C 66 19 124/73 99 10/09/25 05:07 74 10/09/25 05:00 69 18 124/83 99 10/09/25 04:00 75 16 129/66 100 10/09/25 03:22 87 20 100 10/09/25 03:17 78 18 119/69 100 10/09/25 02:51 36.7 C 125 H 18 113/74 98 O2 Del Method 10/09/25 06:35 Room Air 10/09/25 06:26 Room Air 10/09/25 06:17 Room Air 10/09/25 05:07 10/09/25 05:00 Room Air 10/09/25 04:00 Room Air 10/09/25 03:22 Room Air 10/09/25 03:17 Room Air 10/09/25 02:51 Room Air PG Care Time/CCT Total # of Minutes Spent Total Time Spent with Patient: Total time spent is greater than 50% in coordination of care (as documented) at patient's floor/unit and/or counseling patient: Coding Level of Care Code 15008 IN/OBS CONSULT LVL 4,60M Diagnoses Acute upper gastrointestinal bleeding K92.2 Alcohol intoxication F10.929
[2025-10-09] MEDS: FOLIC ACID 1 MG in SYRINGE 9.8 ML IV SCH (07:59)
[2025-10-09] MEDS: THIAMINE HCL 100 MG in SYRINGE 9 ML IV SCH (07:59)
[2025-10-09] MEDS: PANTOprazole 40 MG/10 ML SYR IV SCH (07:59)
[2025-10-09] MEDS ORDERED: NEOSTIGMINE METHYLSULFATE 1 MG/ML 10ML VIAL ONE (08:00)
[2025-10-09] MEDS ORDERED: LIDOCAINE 2% 2 ML VIAL/AMP(20MG/ML) INFIL ONE (08:00)
[2025-10-09] MEDS ORDERED: ONDANSETRON INJ 2 MG/ML 2 ML VIAL ONE (08:00)
[2025-10-09] MEDS ORDERED: GLYCOPYRROLATE 0.2 MG/ML VIAL ONE (08:00)
[2025-10-09] MEDS ORDERED: ROCURONIUM BROMIDE 10 MG/ML 5 ML VIAL IV ONE (08:00)
[2025-10-09] MEDS ORDERED: MIDAZOLAM HCL 1 MG/ML 2ML VIAL ONE (08:00)
[2025-10-09] MEDS ORDERED: DEXAMETHASONE SOD INJ 4 MG/ML VIAL ONE (08:00)
[2025-10-09] MEDS ORDERED: PROPOFOL IV EMULSION 10 MG/ML 20 ML VIAL IV ONE (08:00)
--- NOTE | 2025-10-09 08:01 | Anesthesiology Consultation ---
Date of Service October 09, 2025 Assessment & Plan (1) Encounter for pre-operative examination: Chart Review Chart Review: Acceptable Risk for Surgery History Surgery Operation Date: 10/09/25 08:00 Proposed Procedures p Esophagogastroduodenoscopy - Behzad Delaney MD Height/Weight Height: 5 ft 11 in Weight: 70.7 kg Allergies Allergy/AdvReac Type Severity Reaction Status Date / Time Penicillins Allergy Swelling Verified 10/09/25 05:10 of Lip/Tongue/Throat Medications Active Medications Generic Name Dose Route Start Last Admin Trade Name Freq PRN Reason Stop Dose Admin Lactated Ringer's 1,000 mls @ 75 mls/hr 10/09/25 05:30 10/09/25 05:38 Lr IV 10/12/25 05:29 75 mls/hr .[id number] BARBARA Administration Magnesium Sulfate/Dextrose 1 gm in 100 mls @ 50 mls/hr 10/09/25 08:00 10/09/25 07:58 Magnesium Sulfate / D5w IV 10/09/25 11:59 50 mls/hr Q2H BARBARA Administration Potassium Chloride 10 meq in 100 mls @ 100 mls/hr 10/09/25 06:15 10/09/25 07:32 K Miguel / Wtr IV 10/09/25 09:14 100 mls/hr Q1H BARBARA Administration Pantoprazole Sodium 40 mg in 10 mls @ 5 mls/min 10/09/25 09:00 10/09/25 07:59 Protonix IV 11/08/25 08:59 5 mls/min BID BARBARA Administration Folic Acid 1 mg/ Syringe 10 mls @ 5 mls/min 10/09/25 09:00 10/09/25 07:59 IV 11/08/25 08:59 5 mls/min QAM BARBARA Administration Thiamine HCl 100 mg/ Syringe 10 mls @ 2 mls/min 10/09/25 09:00 10/09/25 07:59 IV 11/08/25 08:59 2 mls/min QAM BARBARA Administration Miscellaneous 1 each 10/09/25 07:30 10/09/25 07:15 Icu Protocol For Hyperglycemia N/A 10/11/25 07:29 1 each ACHS BARBARA Administration NPO Date Last Intake of Fluids: 10/09/25 Time Last Intake of Fluids: 00:00 Last Intake of Fluids Comment: 10/09/2025 Date Last Intake of Solids: 10/09/25 Time Last Intake of Solids: 00:00 Past Medical History Medical History ETOH abuse Past Surgical History Surgical History (Updated 10/09/25 @ 07:59 by Yasmany Contreras MD) Hx of wisdom tooth extraction Social History Smoking Status: Current some day smoker (vapes) Hx Alcohol Use: Yes Alcohol type: hard liquor alcohol intake frequency: 3 or more drinks per day Alcohol Intake Frequency Comment: 3-4/day saturday-saturday. 15-20/day - saturday Hx Substance Use: No substance use type: does not use Physical Exam Vital Signs Last Vital Signs Temp 36.5 C 10/09/25 07:00 Pulse 71 10/09/25 07:30 Resp 15 10/09/25 07:30 BP 121/73 10/09/25 07:30 Pulse Ox 100 10/09/25 07:30 O2 Del Method Room Air 10/09/25 06:35 Testing Laboratory Results 10/09/25 04:06 10/09/25 03:08 PT 10.7 Seconds (9.0-12.0) 10/09/25 03:08 INR 1.0 (0.9-1.1) 10/09/25 03:08 APTT 25 Seconds (21-31) 10/09/25 03:08 Blood Type A Positive 10/09/25 03:08 Antibody Screen NEGATIVE 10/09/25 03:08 10/09/25 10/09/25 07:12 03:13 POC Glucose 115 H POC Glucose (other) 96
[2025-10-09] MEDS ORDERED: ATROPINE SULFATE 0.1 MG/ML 10ML SYR IV PRN (08:05)
[2025-10-09] MEDS ORDERED: PROMETHAZINE HCL 6.25 MG in SODIUM CHLORIDE 0.9% 50 ML IV PRN (08:05)
[2025-10-09] MEDS ORDERED: PANTOprazole 40 MG/10 ML SYR IV SCH (09:00)
--- NOTE | 2025-10-09 09:27 | GI REPORT ---
[facility] Patient: ASHLEE BELLA : 2005 Sex at : Male Age: 20 Years Procedure: Upper GI endoscopy Date: 10/09/2025 Attending Physician: Behzad Delaney MD Referring MD: Eliu Osborn Indications: - Hematemesis Medications: - Monitored Anesthesia Care Complications: - No immediate complications. Estimated Blood Loss: - Estimated blood loss was minimal. Procedure: - The egd scope was introduced through the mouth and advanced to the second part of the duodenum. - The upper GI endoscopy was accomplished without difficulty. - The patient tolerated the procedure well. Findings: - A 8 mm non-bleeding Gabby-Calabrese tear with stigmata of recent bleeding was found. Tear extended from distal esophagus onto the cardia. Adherent clot present. For hemostasis, two hemostatic clips were successfully placed distal esophagus and proximal Cardia. Clip telescope repairer: Amiare. There was no bleeding during, or at the end, of the procedure. On retroflexion there was still clot present in just distal to the GE junction along the cardia. Difficult position to clip based on high lesser curvature and retroflexed approach. Lavaged with no bleeding. Decision not to clip this area based on difficult approach hemostasis being present and concerns of decreasing esophageal lumen . - The entire examined stomach was normal. - The examined duodenum was normal. Impression: - Gabby-Calabrese tear. Clips were placed. Clip telescope repairer: Amiare. - Normal stomach. - Normal examined duodenum. - No specimens collected. Recommendation: - Observe x 24 hours, clear liquids today. Zofran prevent further vomiting. Procedure Code(s): - 77922, Esophagogastroduodenoscopy, flexible, transoral; with control of bleeding, any method Diagnosis Code(s): - K22.6, Gastro-esophageal laceration-hemorrhage syndrome CPT(R) - 2023 copyright [employer]. All Rights Reserved. The CPT codes, CCI edits and ICD codes generated are intended as suggestions and were generated based on input data. These codes are preliminary and upon administration dean review may be revised to meet current compliance and payer requirements. The provider is responsible for the final determination of appropriate codes, and modifiers. Behzad Delaney MD This document has been electronically signed. Note Initiated:10/09/2025 Note Completed:10/09/2025 9:26 AM \\[email or web address]\Central\InterfaceData\Data\Provation\Results\LIVE\[id number]
--- NOTE | 2025-10-09 09:28 | Communication Note ---
Date of Service: October 09, 2025 EGD Gabby-Calabrese tear extending from distal esophagus GE junction into the cardia. Clipped x 2. hemostasis post Clear liquids PPI. Observe for further bleeding
--- NOTE | 2025-10-09 09:39 | Hospitalist Progress Note ---
Date of Service October 09, 2025 Assessment & Plan (1) Alcohol intoxication: (2) Acute upper gastrointestinal bleeding: (3) Gabby-Calabrese tear: Plan Ezequiel webber is a 20 Y O male with no significant PMH presented with hematemesis, abdominal and chest discomfort after funneling beer. He reports he drinks more than 20 beers as well as shots of Whiskey daily. GI on board. Had Upper GI Endoscopy this morning and was found to have Gabby-Calabrese tear extending from distal esophagus -GE junction into the cardia which was clipped. He is being admitted to monitor further bleeding . #Gabby -Calabrese tear -2/2 to alcohol consumption -GI on board - Endoscopy reveals Gabby-Calabrese tear extending from distal esophagus GE junction into the cardia. Clipped x 2. -On clear diet currently. Advance as tolerated -Monitor for bleeding today according to GI #alcohol use - heavy daily drinker. - States drinks more than 20 beers as well as shots of whiskey daily (around 4- 5) - ETOH level 71. Normal liver enzymes. - VERA ordered - Daily IV thiamine and folic acid, multivitamin - Encourage drinking cessation DVT prophylaxis: Hold for now due to bleeding. Encourage ambulation once the patient is off the anesthesia completely Dispo: ICU Admission and Anticipated Discharge Date Admission Date: October 09, 2025 Supervising Physician Co-Signing Physician Notes Attending attestation Pt seen and examined in concert with Dr. Zamora. In agreement with the documented findings as noted in the resident documentation with any exceptions or additions as noted here. Diffuse malaise without focal symptoms reported. Did have a 'crash' this AM with some flushing and sweats but resolved promptly thereafter. Does have extensive alcohol consumption history, 6-8 drinks on weekdays, extensive use on Sat, on going. No further episodes of nausea, hematemesis or abdominal pain reported. Denies JOHANSEN, vision changes, palpitations, shortness of breath or fatigue. VS as noted. On examination, S1/S2 nl RRR no MCG. CTAB. Abd NT/ND BS+ve. WBC 14.86, Hgb 11.4, Cr 0.99 Gabby Calabrese with hematemesis/UGIB - GI consult - s/p clip placement as noted. Trend CBC, CMP daily. Continue PPI IV BID and transition to PO with G recommendations. Continue antiemetic PRN. 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 AWSS as noted with low threshold for addition of PRN lorazpeam with any symptoms. Else see resident documentation as noted. Tracy Nieves was seen and examined in the bedside this morning before he headed for endoscopy. He reported he was feeling well. No nausea, vomiting, or abdominal discomfort currently. Review of Systems Review of Systems: As per HPI Physical Exam Physical Exam: Constitutional: Well appearing, No acute distress, PILCCOD: Negative HEENT: Atraumatic, Normocephalic, No conjunctival injection CVS: S1 S2 no murmur, Regular Rhythm, no LE edema Respiratory: BL equal air entry with NVBS. No rhonchi, wheezes, or crackles. No increased work of breathing GI: Soft, Nondistended, Nontender, Normal Bowel sounds + MSK: No gross deformities noted Skin: Warm, Dry, No rashes Neuro: Alert, Oriented to TPP, No Focal deficit Psych: Mood and Affect congruent, Cooperative on exam Results & Data Results & Data Vital Signs (Past 12 Hours) Vital Signs Temp Pulse Pulse Pulse Resp BP BP 10/09/25 09:27 36 C L 73 18 118/82 10/09/25 08:30 118/83 10/09/25 08:30 118/83 10/09/25 08:30 71 12 10/09/25 08:00 96 H 20 10/09/25 08:00 129/81 10/09/25 08:00 129/81 10/09/25 08:00 76 10/09/25 07:30 121/73 10/09/25 07:30 121/73 10/09/25 07:30 71 15 10/09/25 07:00 66 21 10/09/25 07:00 115/69 10/09/25 07:00 36.5 C 10/09/25 06:35 68 18 129/74 10/09/25 06:30 75 10/09/25 06:26 36.9 C 77 16 134/67 10/09/25 06:17 36.8 C 66 19 124/73 10/09/25 05:07 74 10/09/25 05:00 69 18 124/83 10/09/25 04:00 75 16 129/66 10/09/25 03:22 87 20 10/09/25 03:17 78 18 119/69 10/09/25 02:51 36.7 C 125 H 18 113/74 Pulse Ox O2 Del Method 10/09/25 09:27 97 Room Air 10/09/25 08:30 10/09/25 08:30 10/09/25 08:30 100 10/09/25 08:00 96 10/09/25 08:00 10/09/25 08:00 10/09/25 08:00 10/09/25 07:30 10/09/25 07:30 10/09/25 07:30 100 10/09/25 07:00 98 10/09/25 07:00 10/09/25 07:00 10/09/25 06:35 98 Room Air 10/09/25 06:30 10/09/25 06:26 96 Room Air 10/09/25 06:17 99 Room Air 10/09/25 05:07 10/09/25 05:00 99 Room Air 10/09/25 04:00 100 Room Air 10/09/25 03:22 100 Room Air 10/09/25 03:17 100 Room Air 10/09/25 02:51 98 Room Air Resident Activity Tracking Resident Involvement: Resident Care Provided Care Provided: Adult Hospital Medicine
--- NOTE | 2025-10-09 12:28 | Anesthesiology Progress Note ---
Date of Service October 09, 2025 Anesthesia Post Procedure Vital Signs Vital Signs: Temp Pulse Pulse Pulse Resp BP BP 10/09/25 12:00 55 L 14 10/09/25 12:00 118/66 10/09/25 11:30 124/63 10/09/25 11:30 67 13 10/09/25 11:00 60 15 10/09/25 11:00 123/65 10/09/25 10:31 115/75 10/09/25 10:30 70 17 10/09/25 10:15 118/68 10/09/25 10:15 63 16 10/09/25 10:12 60 15 10/09/25 10:10 116/67 10/09/25 10:10 116/67 10/09/25 10:10 116/67 10/09/25 10:10 116/67 10/09/25 10:10 116/67 10/09/25 10:09 57 L 19 10/09/25 10:05 119/64 10/09/25 10:05 119/64 10/09/25 10:05 119/64 10/09/25 10:05 119/64 10/09/25 10:05 119/64 10/09/25 10:03 57 L 13 10/09/25 10:00 61 16 10/09/25 10:00 118/78 10/09/25 10:00 118/78 10/09/25 10:00 118/78 10/09/25 10:00 118/78 10/09/25 10:00 118/78 10/09/25 09:55 123/76 10/09/25 09:55 123/76 10/09/25 09:55 123/76 10/09/25 09:55 123/76 10/09/25 09:55 123/76 10/09/25 09:54 72 20 10/09/25 09:50 122/73 10/09/25 09:50 122/73 10/09/25 09:50 122/73 10/09/25 09:50 122/73 10/09/25 09:50 122/73 10/09/25 09:48 68 12 10/09/25 09:45 67 15 10/09/25 09:45 121/68 10/09/25 09:45 121/68 10/09/25 09:45 121/68 10/09/25 09:45 121/68 10/09/25 09:45 121/68 10/09/25 09:45 73 18 122/73 10/09/25 09:40 122/73 10/09/25 09:40 122/73 10/09/25 09:40 122/73 10/09/25 09:40 122/73 10/09/25 09:40 122/73 10/09/25 09:39 71 8 L 10/09/25 09:35 118/80 10/09/25 09:35 118/80 10/09/25 09:35 79 18 118/80 10/09/25 09:33 73 11 L 10/09/25 09:30 84 15 10/09/25 09:30 118/72 10/09/25 09:30 118/72 10/09/25 09:27 36 C L 73 18 118/82 10/09/25 08:30 118/83 10/09/25 08:30 118/83 10/09/25 08:30 71 12 10/09/25 08:00 96 H 20 10/09/25 08:00 129/81 10/09/25 08:00 129/81 10/09/25 08:00 76 10/09/25 07:30 121/73 10/09/25 07:30 121/73 10/09/25 07:30 71 15 10/09/25 07:00 66 21 10/09/25 07:00 115/69 10/09/25 07:00 36.5 C 10/09/25 06:35 68 18 129/74 10/09/25 06:30 75 10/09/25 06:26 36.9 C 77 16 134/67 10/09/25 06:17 36.8 C 66 19 124/73 10/09/25 05:07 74 10/09/25 05:00 69 18 124/83 10/09/25 04:00 75 16 129/66 10/09/25 03:22 87 20 10/09/25 03:17 78 18 119/69 10/09/25 02:51 36.7 C 125 H 18 113/74 Pulse Ox O2 Del Method 10/09/25 12:00 98 10/09/25 12:00 10/09/25 11:30 10/09/25 11:30 98 10/09/25 11:00 98 10/09/25 11:00 10/09/25 10:31 10/09/25 10:30 99 10/09/25 10:15 10/09/25 10:15 100 10/09/25 10:12 98 10/09/25 10:10 10/09/25 10:10 10/09/25 10:10 10/09/25 10:10 10/09/25 10:10 10/09/25 10:09 96 10/09/25 10:05 10/09/25 10:05 10/09/25 10:05 10/09/25 10:05 10/09/25 10:05 10/09/25 10:03 96 10/09/25 10:00 97 10/09/25 10:00 10/09/25 10:00 10/09/25 10:00 10/09/25 10:00 10/09/25 10:00 10/09/25 09:55 10/09/25 09:55 10/09/25 09:55 10/09/25 09:55 10/09/25 09:55 10/09/25 09:54 100 10/09/25 09:50 10/09/25 09:50 10/09/25 09:50 10/09/25 09:50 10/09/25 09:50 10/09/25 09:48 99 10/09/25 09:45 97 10/09/25 09:45 10/09/25 09:45 10/09/25 09:45 10/09/25 09:45 10/09/25 09:45 10/09/25 09:45 97 Room Air 10/09/25 09:40 10/09/25 09:40 10/09/25 09:40 10/09/25 09:40 10/09/25 09:40 10/09/25 09:39 90 10/09/25 09:35 10/09/25 09:35 10/09/25 09:35 98 Room Air 10/09/25 09:33 100 10/09/25 09:30 99 10/09/25 09:30 10/09/25 09:30 10/09/25 09:27 97 Room Air 10/09/25 08:30 10/09/25 08:30 10/09/25 08:30 100 10/09/25 08:00 96 10/09/25 08:00 10/09/25 08:00 10/09/25 08:00 10/09/25 07:30 10/09/25 07:30 10/09/25 07:30 100 10/09/25 07:00 98 10/09/25 07:00 10/09/25 07:00 10/09/25 06:35 98 Room Air 10/09/25 06:30 10/09/25 06:26 96 Room Air 10/09/25 06:17 99 Room Air 10/09/25 05:07 10/09/25 05:00 99 Room Air 10/09/25 04:00 100 Room Air 10/09/25 03:22 100 Room Air 10/09/25 03:17 100 Room Air 10/09/25 02:51 98 Room Air Pain Intensity Medial Abdomen: Pain Intensity: 5 Transfer of Care Handoff Completed per policy Notes Mental Status: alert / awake / arousable Patient Amnestic to Procedure: Yes Nausea / Vomiting: adequately controlled Pain: adequately controlled Airway Patency, RR, SpO2: stable & adequate BP & HR: stable & adequate Hydration State: stable & adequate Anesthetic Complications: no major complications apparent
--- NOTE | 2025-10-09 12:30 | Electrocardiogram Report ---
Test Reason : Blood Pressure : */* mmHG Vent. Rate : 85 BPM Atrial Rate : 85 BPM P-R Int : 124 ms QRS Dur : 102 ms QT Int : 384 ms P-R-T Axes : 67 68 67 degrees QTcB Int : 456 ms Normal sinus rhythm with sinus arrhythmia Normal ECG No previous ECGs available Confirmed by Barrett Lara ([id number]) on 10/09/2025 12:30:10 PM Referred By: REFERRED SELF Confirmed By: Barrett Lara
--- NOTE | 2025-10-09 15:55 | Critical Care Progress Note ---
Date of Service October 09, 2025 Assessment & Plan (1) Acute upper gastrointestinal bleeding: (2) Alcohol intoxication: (3) Gabby-Calabrese tear: Plan Reason Critically Ill: 1. Acute upper GI bleeding 2. Alcohol intoxication with daily use Neuro - [facility] ICU: Negative RASS GOAL 0 ETOH level is 71 at time of admission Reported excessive ETOH consumption (up to 20 beers daily + 5 Whiskey shots), considered high risk for withdrawal: Will monitor and consider intervention accordingly. Thiamine, folic acid, MVI I had a discussion with the patient regarding future alcohol consumption. I explained to him that some people are able to drink moderately and others become dependent. I counseled him regarding the potential adverse effects of excessive alcohol use and dependence. Cardiac - No acute concerns MAP goal > 65mmHg Admit EKG NSR with sinus arrhythmia. Currently in sinus rhythm. Respiratory - HOB 30, aspiration precautions SpO2 goal > 92% IS/Flutter GI - Gabby-Calabrese tear on Endoscopy. 2 clips. Diet: Clear liquids SUP: PPI BID Bowel regimen: PRN RENAL/LYTES - No acute concerns Replete electrolytes as indicated No indication for Simpson Gentle IVF Maintain net even to net negative ENDO - BG 140-180 per SCCM guidelines ISS if needed while inpatient HEME - Significant drop in H/H from admission, at least partly dilutional Leukocytosis, most likely stress-demargination. No evidence of infection. ID - No acute concerns No esophageal rupture on CT, no indication for fungal or antibacterial coverage at this time LINES/TUBES/DRAINS - PIV x2 DVT PROPHYLAXIS - SCDs while in bed Chemoprophylaxis Contraindicated CODE STATUS - FULL DISPOSITION - Observe in ICU. Potential downgrade this evening. Admission and Anticipated Discharge Date Admission Date: October 09, 2025 Subjective The patient is a very pleasant 20-year-old male who presented to the ED due to hematemesis, abdominal pain, and chest discomfort. Earlier in the evening, after funneling beers with friends, he experienced projectile vomiting, followed by severe abdominal pain. Later that night, he had an episode of massive hematemesis at home, which was witnessed by his sister. He reported no prior history of GI bleeding, black stools, or significant medical problems. He admitted to daily heavy alcohol use, sometimes up to 20 beers and 45 shots of whiskey, and occasional use of Advil. He also reported current cigarette and e- cigarette use. On arrival to the ED, he was mildly tachycardic but hemodynamically stable, afebrile, and in no acute distress. He had two episodes of hematemesisone at home and one in the ED. His initial hemoglobin was 15, which dropped to 11 after IV fluids, indicating significant blood loss. Laboratory evaluation revealed leukocytosis, mild hypokalemia, mild hypomagnesemia, elevated BUN/creatinine ratio, and an elevated anion gap. His ETOH level was 71 mg/dL. Imaging, including CT of the abdomen/pelvis and chest CTA, showed mild mucosal edema involving the gastric cardia and gastroesophageal junction, with no evidence of cirrhosis, varices, or pulmonary embolism. These findings were consistent with a Gabby-Calabrese tear. The review of systems was otherwise unremarkable except for resolved chest pain, nausea, and anxiety. On physical exam, he appeared well-developed and well- nourished, with normal vital signs after initial resuscitation. He had mild epigastric tenderness but no guarding or rigidity. Cardiac, pulmonary, and neurologic exams were unremarkable. He was admitted to the ICU for close monitoring and further management, including NPO status, IV fluids, PPI therapy, electrolyte repletion, and supportive care for alcohol withdrawal risk. GI and critical care consultations were obtained, and plans were made for EGD with anesthesia for airway protection. The patient was counseled on the risks of the procedure and the importance of alcohol cessation. Note from 10/09/2025: Patient underwent EGD with clipping of Gabby-Calabrese tear. Patient is doing well at this time. Denies chest discomfort or nausea. Denies cough or dyspnea. Review of Systems Review of Systems: All systems reviewed & are unremarkable except as noted in HPI & below Physical Exam Physical Exam: General: In no acute distress, breathing room-air. Skin: Warm and dry to touch. Noobvious lesions. Eyes: Anicteric.Noconjunctival hyperemia or exudates.No periorbital edema. ENT: No oral thrush. No oropharyngeal erythema or exudates. Neck: No palpable masses or adenopathy. Respiratory: Normal breath sounds, no wheezing or crackles. No use of accessory muscles and no prolonged exhalation. Cardiac: Distant sounds, regular rhythm, no murmurs, no gallops, no rubs; could not appreciate JV pulse elevation. GI: Soft, nontender. Extremities No clubbing,no cyanosis,no edema. Neuro: No gross motor deficits. Seems appropriate. No facial-droop. Speech is clear. Results & Data Results & Data Vital Signs (Past 12 Hours) Vital Signs Temp Pulse Pulse Pulse Resp BP BP 10/09/25 15:00 129/73 10/09/25 15:00 63 16 10/09/25 14:30 65 22 10/09/25 14:01 126/72 10/09/25 14:00 66 21 10/09/25 13:30 53 L 13 10/09/25 13:00 52 L 13 10/09/25 13:00 112/62 10/09/25 12:37 36.7 C 10/09/25 12:30 118/60 10/09/25 12:30 58 L 13 10/09/25 12:00 55 L 14 10/09/25 12:00 118/66 10/09/25 11:30 124/63 10/09/25 11:30 67 13 10/09/25 11:00 60 15 10/09/25 11:00 123/65 10/09/25 10:31 115/75 10/09/25 10:30 70 17 10/09/25 10:15 118/68 10/09/25 10:15 63 16 10/09/25 10:12 60 15 10/09/25 10:10 116/67 10/09/25 10:10 116/67 10/09/25 10:10 116/67 10/09/25 10:10 116/67 10/09/25 10:10 116/67 10/09/25 10:09 57 L 19 10/09/25 10:05 119/64 10/09/25 10:05 119/64 10/09/25 10:05 119/64 10/09/25 10:05 119/64 10/09/25 10:05 119/64 10/09/25 10:03 57 L 13 10/09/25 10:00 61 16 10/09/25 10:00 118/78 10/09/25 10:00 118/78 10/09/25 10:00 118/78 10/09/25 10:00 118/78 10/09/25 10:00 118/78 10/09/25 09:55 123/76 10/09/25 09:55 123/76 10/09/25 09:55 123/76 10/09/25 09:55 123/76 10/09/25 09:55 123/76 10/09/25 09:54 72 20 10/09/25 09:50 122/73 10/09/25 09:50 122/73 10/09/25 09:50 122/73 10/09/25 09:50 122/73 10/09/25 09:50 122/73 10/09/25 09:48 68 12 10/09/25 09:45 67 15 10/09/25 09:45 121/68 10/09/25 09:45 121/68 10/09/25 09:45 121/68 10/09/25 09:45 121/68 10/09/25 09:45 121/68 10/09/25 09:45 73 18 122/73 10/09/25 09:40 122/73 10/09/25 09:40 122/73 10/09/25 09:40 122/73 10/09/25 09:40 122/73 10/09/25 09:40 122/73 10/09/25 09:39 71 8 L 10/09/25 09:35 118/80 10/09/25 09:35 118/80 10/09/25 09:35 79 18 118/80 10/09/25 09:33 73 11 L 10/09/25 09:30 84 15 10/09/25 09:30 118/72 10/09/25 09:30 118/72 10/09/25 09:27 36 C L 73 18 118/82 10/09/25 08:30 118/83 10/09/25 08:30 118/83 10/09/25 08:30 71 12 10/09/25 08:00 96 H 20 10/09/25 08:00 129/81 10/09/25 08:00 129/81 10/09/25 08:00 76 10/09/25 07:30 121/73 10/09/25 07:30 121/73 10/09/25 07:30 71 15 10/09/25 07:00 66 21 10/09/25 07:00 115/69 10/09/25 07:00 36.5 C 10/09/25 06:35 68 18 129/74 10/09/25 06:30 75 10/09/25 06:26 36.9 C 77 16 134/67 10/09/25 06:17 36.8 C 66 19 124/73 10/09/25 05:07 74 10/09/25 05:00 69 18 124/83 10/09/25 04:00 75 16 129/66 Pulse Ox O2 Del Method 10/09/25 15:00 10/09/25 15:00 100 10/09/25 14:30 10/09/25 14:01 10/09/25 14:00 99 10/09/25 13:30 98 10/09/25 13:00 98 10/09/25 13:00 10/09/25 12:37 10/09/25 12:30 10/09/25 12:30 97 10/09/25 12:00 98 10/09/25 12:00 10/09/25 11:30 10/09/25 11:30 98 10/09/25 11:00 98 10/09/25 11:00 10/09/25 10:31 10/09/25 10:30 99 10/09/25 10:15 10/09/25 10:15 100 10/09/25 10:12 98 10/09/25 10:10 10/09/25 10:10 10/09/25 10:10 10/09/25 10:10 10/09/25 10:10 10/09/25 10:09 96 10/09/25 10:05 10/09/25 10:05 10/09/25 10:05 10/09/25 10:05 10/09/25 10:05 10/09/25 10:03 96 10/09/25 10:00 97 10/09/25 10:00 10/09/25 10:00 10/09/25 10:00 10/09/25 10:00 10/09/25 10:00 10/09/25 09:55 10/09/25 09:55 10/09/25 09:55 10/09/25 09:55 10/09/25 09:55 10/09/25 09:54 100 10/09/25 09:50 10/09/25 09:50 10/09/25 09:50 10/09/25 09:50 10/09/25 09:50 10/09/25 09:48 99 10/09/25 09:45 97 10/09/25 09:45 10/09/25 09:45 10/09/25 09:45 10/09/25 09:45 10/09/25 09:45 10/09/25 09:45 97 Room Air 10/09/25 09:40 10/09/25 09:40 10/09/25 09:40 10/09/25 09:40 10/09/25 09:40 10/09/25 09:39 90 10/09/25 09:35 10/09/25 09:35 10/09/25 09:35 98 Room Air 10/09/25 09:33 100 10/09/25 09:30 99 10/09/25 09:30 10/09/25 09:30 10/09/25 09:27 97 Room Air 10/09/25 08:30 10/09/25 08:30 10/09/25 08:30 100 10/09/25 08:00 96 10/09/25 08:00 10/09/25 08:00 10/09/25 08:00 10/09/25 07:30 10/09/25 07:30 10/09/25 07:30 100 10/09/25 07:00 98 10/09/25 07:00 10/09/25 07:00 10/09/25 06:35 98 Room Air 10/09/25 06:30 10/09/25 06:26 96 Room Air 10/09/25 06:17 99 Room Air 10/09/25 05:07 10/09/25 05:00 99 Room Air 10/09/25 04:00 100 Room Air Laboratory Results 10/09/25 10/09/25 10/09/25 Unknown 11:27 07:12 WBC RBC Hgb POC Hgb Hct POC Hct MCV MCH MCHC RDW Std Deviation RDW Coeff of Melony Plt Count MPV Immature Gran % (Auto) Neut % (Auto) Lymph % (Auto) [place] % (Auto) Eos % (Auto) Baso % (Auto) Neut # (Auto) Lymph # (Auto) [place] # (Auto) Eos # (Auto) Baso # (Auto) Immature Gran # (Auto) PT INR APTT PTT Ratio POC Sodium Sodium POC Potassium Potassium POC Chloride Chloride Carbon Dioxide POC Total CO2 Anion Gap POC Anion Gap POC BUN BUN Creatinine POC Creatinine Est Cr Clr Drug Dosing eGFR BUN/Creatinine Ratio Glucose POC Glucose 107 H 115 H POC Glucose (other) Calcium POC Ioniz Calcium Abrahan Magnesium Total Bilirubin AST ALT Alkaline Phosphatase Troponin I High Sens Total Protein Albumin Globulin Albumin/Globulin Ratio Lipase Nasal Screen MRSA (PCR) Negative Ethyl Alcohol mg/dL Blood Type Antibody Screen 10/09/25 10/09/25 10/09/25 04:06 03:13 03:08 WBC 14.86 H RBC 4.69 L Hgb 11.4 L D 15.0 POC Hgb 15.3 Hct 32.7 L 41.8 L POC Hct 45 MCV 89.1 MCH 32.0 MCHC 35.9 RDW Std Deviation 38.8 RDW Coeff of Meloyn 12.0 Plt Count 303 MPV 9.4 Immature Gran % (Auto) 0.3 Neut % (Auto) 75.9 Lymph % (Auto) 15.7 [place] % (Auto) 6.5 Eos % (Auto) 1.3 Baso % (Auto) 0.3 Neut # (Auto) 11.26 H Lymph # (Auto) 2.33 [place] # (Auto) 0.97 H Eos # (Auto) 0.20 Baso # (Auto) 0.05 Immature Gran # (Auto) 0.05 PT 10.7 INR 1.0 APTT 25 PTT Ratio 0.9 POC Sodium 141 Sodium 139 POC Potassium 3.3 Potassium 3.4 L POC Chloride 104 Chloride 104 Carbon Dioxide 19 L POC Total CO2 19 L Anion Gap 16 H POC Anion Gap 23.0 POC BUN 23 H BUN 22 Creatinine 0.99 POC Creatinine 1.3 Est Cr Clr Drug Dosing 113.2 eGFR 111.15 BUN/Creatinine Ratio 22.2 H Glucose 97 POC Glucose POC Glucose (other) 96 Calcium 10.0 POC Ioniz Calcium Abrahan 1.06 L Magnesium 1.5 L Total Bilirubin 0.6 AST 33 ALT 36 Alkaline Phosphatase 57 Troponin I High Sens < 2.3 Total Protein 8.3 Albumin 5.0 Globulin 3.3 Albumin/Globulin Ratio 1.5 Lipase 19 Nasal Screen MRSA (PCR) Ethyl Alcohol mg/dL 71.0 H Blood Type A Positive Antibody Screen NEGATIVE Diagnostic Findings Abdomen/Pelvis CT 10/09/25 03:01 EXAM: CT abd pelvis IV con only CLINICAL HISTORY: Severe epigastric pain, hematemesis TECHNIQUE: Contiguous axial images were obtained from the level of the diaphragm to the pubic symphysis with intravenous contrast. Coronal and sagittal reconstructions were likewise performed and indicated to increase the sensitivity for detecting clinically relevant pathology. If IV contrast material had not been administered, the likelihood of detecting abnormalities relevant to the patient's condition would have been substantially decreased. CT scan was performed according to ALARA (as low as reasonably achievable). COMPARISON: None. FINDINGS: The visualized lung bases are clear. The liver is normal in size and attenuation. No focal liver lesions are seen. There is no intra or extrahepatic biliary ductal dilatation. Hepatic vasculature is patent. The gallbladder is present. The spleen, pancreas, and adrenal glands are unremarkable. The kidneys are normal in size and attenuation. There is no hydronephrosis or perinephric fat stranding. No renal calculi or renal masses are identified. The ureters are normal in caliber and no ureteral calculi are seen. The bladder is normal in contour. Pelvic viscera are unremarkable. No focal or diffuse bowel wall thickening or evidence of bowel obstruction is identified. No imaging evidence of appendicitis. Abdominal and pelvic vasculature is patent. No adenopathy or fluid collections are seen. No aggressive appearing osseous lesions are identified. Mild mucosal edema is noted involving gastric cardia and adjacent to the gastroesophageal junction. - possibility of inflammatory changes. IMPRESSION: Mild mucosal edema is noted involving gastric cardia and adjacent to the gastroesophageal junction. - possibility of inflammatory changes. No other acute intra abdominal abnormality seen. Electronically signed by Wale Robles 10-09-2025 04:24 AM Chest CTA 10/09/25 03:01 EXAM: CT angio chest PE protocol CLINICAL HISTORY: PE, recent travel, hematemesis TECHNIQUE: Contiguous axial images were obtained from the neck base through the upper abdomen following intravenous administration of iodinated contrast material. Angiographic images were processed, 3D MIP images were acquired for interpretation. If IV contrast material had not been administered, the likelihood of detecting abnormalities relevant to the patient's condition would have been substantially decreased. Coronal and sagittal 3-D MIPs were likewise performed and indicated to increase the sensitivity of detectin diffuse clinically relevant pathology. CT scan was performed according to ALARA (as low as reasonably achievable). COMPARISON: None. FINDINGS: Adequate contrast bolus without evidence of pulmonary embolism. The central airways are patent. The lungs are clear. No pleural effusion. The heart, aorta, and pulmonary arteries are of normal size and configuration. There are no appreciable coronary artery and aortic atherosclerotic calcifications. No pericardial effusion is identified. The thyroid is unremarkable. No mediastinal, hilar, or axillary lymphadenopathy is noted. No suspicious lytic or sclerotic osseous lesions are identified. IMPRESSION: 1. No evidence of pulmonary embolism or pulmonary disease. 2. Suggestion of edematous wall thickening of lower thoracic oesophagus and gastro-esophageal junction. Electronically signed by Wale Robles 10-09-2025 04:28 AM Chest X-Ray 10/09/25 03:01 EXAM: XR chest 1V portable CLINICAL HISTORY: Hematemesis TECHNIQUE: An X-ray image of the chest is obtained in AP projection. COMPARISON: CT angio chest done earlier at the same date 10/09/2025 02:26:15 SENIOR SYSTEMS ARCHITECT. FINDINGS: Pulmonary Parenchyma: Lungs are clear bilaterally. No evidence of consolidation, collapse, or focal opacities. No pulmonary nodules are identified. No evidence of pleural effusion or pleural thickening. Heart and Mediastinum: Heart size and shape are normal. No mediastinal widening or masses. No hilar or mediastinal lymphadenopathy. Bony Thorax: Bony thorax appears intact without fractures or deformities. Soft Tissues: Soft tissues overlying the chest wall are unremarkable. IMPRESSION: No acute cardiopulmonary abnormalities are identified. No significant interval changes from the prior study. Electronically signed by Ángel Lindo 10-09-2025 04:40 AM Medications Administered Active Medications Generic Name Dose Route Start Last Admin Trade Name Freq PRN Reason Stop Dose Admin Lactated Ringer's 1,000 mls @ 75 mls/hr 10/09/25 05:30 10/09/25 05:38 Lr IV 10/12/25 05:29 75 mls/hr .[id number] BARBARA Administration Pantoprazole Sodium 40 mg in 10 mls @ 5 mls/min 10/09/25 09:00 10/09/25 07:59 Protonix IV 11/08/25 08:59 5 mls/min BID BARBARA Administration Folic Acid 1 mg/ Syringe 10 mls @ 5 mls/min 10/09/25 09:00 10/09/25 07:59 IV 11/08/25 08:59 5 mls/min QAM BARBARA Administration Thiamine HCl 100 mg/ Syringe 10 mls @ 2 mls/min 10/09/25 09:00 10/09/25 07:59 IV 11/08/25 08:59 2 mls/min QAM BARBARA Administration Miscellaneous 1 each 10/09/25 07:30 10/09/25 11:39 Icu Protocol For Hyperglycemia N/A 10/11/25 07:29 1 each ACHS BARBARA Administration Coding Level of Care Code 19962 SUB INP/OBS CARE 3/50MIN Diagnoses Acute upper gastrointestinal bleeding K92.2 Alcoholic intoxication without complication F10.920 Complication of substance-induced condition: uncomplicated Gabby-Calabrese tear K22.6 Time Spent (min) 55 (2) Alcohol intoxication Complication of substance-induced condition: uncomplicated Qualified Code(s): F10.920 - Alcohol use, unspecified with intoxication, uncomplicated
[2025-10-10] MEDS ORDERED: Nursing to Pharmacy Communication SCH (02:15)
--- NOTE | 2025-10-10 04:09 | Billing Data ---
Date of Service October 10, 2025 Coding Level of Care Code 55146 CRITICAL CARE
[2025-10-10 05:01] LABS: Hematocrit (blood only) 31.4 % (42.0-52.0); Hemoglobin 11.1 g/dL (14.0-18.0); Immature Granulocytes # (auto) 0.03 K/uL (0.01-0.20); Immature Granulocytes % (auto) 0.4 %; Mean Corpuscular Hemoglobin 32.4 pg (25.0-34.0); Mean Corpuscular Volume 91.5 fL (80.0-100.0); Platelet Count 206 K/uL (130-400); RDW Standard Deviation 40.3 fL (36.4-46.3); Red Blood Count 3.43 M/uL (4.70-6.10); White Blood Count 7.65 K/ul (4.8-10.8)
[2025-10-10 05:15] LABS: Anion Gap 7.0 (3-11); Blood Urea Nitrogen 14.0 mg/dl (6-23); Calcium 9.0 mg/dl (8.6-10.3); Carbon Dioxide 24.0 mmol/L (21-32); Chloride 108.0 mmol/L (98-107); Creatinine Clr Calc Pharmacy 121.7 ml/min; Glucose 107.0 mg/dl (70-99(Fasting)); Potassium 3.7 mmol/L (3.5-5.1); Sodium 139.0 mmol/L (136-145)
--- NOTE | 2025-10-10 09:38 | Discharge Summary ---
Date of Service October 10, 2025 Admission HPI Per Admitting Provider Ezequiel is a 20 y/o male with no significant PMH that presented today due to hematemesis. Patient states having drinks tonight with some friends. Around 8 pm patient had an emeses after funneling beers. Symptoms persistent after the episode and he had a massive hematemesis in his room. He stated having abdominal pain, and chest discomfort. Patient was brought here by some friends. No family history of clotting disorder. He sates he took two Advil yesterday. No previous history of GI bleed or black stools. No daily medications. Denied any use of controlled substance or cigarette smoking. He does states drink alcohol on a daily basis. On evaluation denied any chest pain, states that he still feels a little dizzy, no nausea. Patient will be admitted for endoscopy and further treatment. He goes to [facility]. Denied any fever, diarrhea, palpitations, headaches. Admission Exam Per Admitting Provider Constitutional: well developed and well nourished; no acute distress Eyes: PERRL, conjunctivae normal, anicteric sclerae Respiratory: normal respiratory effort, lungs clear to auscultation Cardiovascular: RRR, no murmur, no edema Gastrointestinal (Abdomen): Inspection/Auscultation: normal bowel sounds Percussion/Palpation: + abdomen tender (Mild epigastric tenderness) and abdomen soft; no guarding and abdomen not rigid Skin: no rashes, warm and dry Principal Diagnosis Gabby Pineda tear Discharge Exam Constitutional: Well appearing, No acute distress, PILCCOD: Negative HEENT: Atraumatic, Normocephalic, No conjunctival injection CVS: S1 S2 no murmur, Regular Rhythm, no LE edema Respiratory: BL equal air entry with NVBS. No rhonchi, wheezes, or crackles. No increased work of breathing GI: Soft, Nondistended, Nontender, Normal Bowel sounds + MSK: No gross deformities noted Skin: Warm, Dry, No rashes Neuro: Alert, Oriented to TPP, No Focal deficit Psych: Mood and Affect congruent, Cooperative on exam Discharge Data Allergies Allergy/AdvReac Type Severity Reaction Status Date / Time Penicillins Allergy Swelling Verified 10/09/25 05:10 of Lip/Tongue/Throat Consultations 10/09/25 04:42 ED Decision to Admit Stat 10/09/25 05:36 Consult Gastroenterology Routine 10/09/25 06:17 Consult Heavy Forger Routine Procedures Performed Operation Date: 10/09/25 08:00 Actual Procedures p Esophagogastroduodenoscopy, Clips x two. - Behzad Delaney MD Ordered Studies 10/09/25 03:01 CT Abd and Pelvis [CT abd pelvis IV con only] Stat CT angio chest PE protocol Stat Hospital Course (1) Alcohol intoxication: (2) Acute upper gastrointestinal bleeding: (3) Gabby-Pineda tear: Ezequiel Ball is a 20 Y O male with no significant PMH presented with hematemesis, abdominal and chest discomfort after funneling beer. He reports he drinks more than 20 beers as well as shots of Whiskey daily. He was found to have for Gabby pineda tear on Upper GI endoscopy #Gabby -Pineda tear -2/2 to alcohol consumption - Endoscopy reveals Gabby-Pineda tear extending from distal esophagus GE junction into the cardia. Clipped x 2. -Tolerated regular diet this morning -Stable for discharge today. -Protonix 40mg BID for 14 days and daily for 10 weeks. -Zofran as needed for nausea -Famotidine BID PRN -F/U with PCP in the outpatient #alcohol use - heavy daily drinker. - States drinks more than 20 beers as well as shots of whiskey daily (around 4- 5) - ETOH level 71. Normal liver enzymes. - Encourage drinking cessation Dispo: Home Total Time Total Time Spent Total Time Spent (In Minutes): See attending attestation Discharge Plan Discharge Items Patient Disposition: Home - Self-Care Reason For Visit: GI BLEED Discharge Diagnosis: Gabby Pineda tear Condition on Discharge: Fair Activity: Per Instructions section Non-emergency contact: Primary Care Provider and Engine Test Cell Technician Call non-emergency contact if: you have any medication questions and your symptoms worsen Follow-up/Referrals: [place] [Primary Care Provider] - (Follow up with [facility] in 7-10 days.) Diet: Other - See Diet Comment Diet Comment: Soft diet includes well cooked vegetables, scrambled eggs, mashed potatoes, Addtl Attending Provider Instructions: You came in hospital with vomiting blood. Upper GI endoscopy was done and it showed that you had Gabby Pineda tear for which 2 clips were applied .We monitored you for further bleeding after the procedure and no further bleeding was noted. You tolerated the breakfast well this morning. So you are stable for discharge today. Diet: Recommend soft diet that includes mashed potatoes, well cooked vegetables, scrambled eggs,etc New medication -We have sent a new medication called Protonix to your pharmacy. Please take Protonix two times a day 12 hrs apart for 14 days and then daily for next 10 weeks. -We have sent a medication called Zofran to your Pharmacy. Please take that as needed 8 hrs apart for nausea. -We have sent a new medication called Famotidine 20mg to your pharmacy. Please take Famotidine 20mg two times a day (12hrs apart) as needed for acid reflux or flare of symptoms. Follow up -Please followup with your Primary Care Provider within a week from discharge. Its very important to follow up with your Primary care Provider after hospital discharge. -Please followup with GI doctor in the outpatient. Pending Studies at Discharge: No Stand-Alone Forms: [facility] [employer], Smoking Cessation Medications and DC Order Prescriptions: New pantoprazole [Protonix] 40 mg tablet,delayed release (DR/EC) 40 mg PO DAILY 120 Days Qty: 120 0RF Rx Instructions: Take 40mg two times a day 12 hours apart for 14 days, and then daily every morning for next 10 weeks. ondansetron HCl 4 mg tablet 4 mg PO TID PRN (Reason: nausea and vomiting) 5 Days Qty: 14 0RF famotidine 20 mg tablet 20 mg PO BID PRN (Reason: dyspepsia) 30 Days Qty: 60 0RF Discharge Orders: Discharge Order (Routine); Ordered 10/10/25 Ordered By: Gary Royal/Other Patient Handouts: Social Drinking vs Problem Drinking, SCI Alcohol Use, Gabby-Pineda Tear, ED Alcohol Intoxication, ED Upper GI Bleeding (Stable) Admission Data Admit Date/Time: 10/09/25 05:26 Attending Provider: Claudy Howard Admit Provider: Shanae Childs Primary Care Provider: [facility] Other Providers: Neo Agrawal; Behzad Delaney; Cachorro Cardona Other Interventions: Discharge Summary Assessment (RN) Last Done: 10/10/25 10:45 Supervising Physician Co-Signing Physician Notes Attending attestation Pt seen and examined in concert with Dr. Zamora. In agreement with the documented findings as noted in the resident documentation with any exceptions or additions as noted here. Minimal symptoms of nausea well controlled on present regimen without abdominal discomfort. Ongoing hoarseness. Patient reports that hoarseness, as well as epigastric discomfort, pharyngitis and abdominal pain has been consistent for a number of years and often worsens with increase intake of spicy foods or alcohol, consistent with this course of illness. Father w/ similar history of tear in his 40s. VS as noted. On examination, S1/S2 nl RRR no MCG. CTAB. Abd NT/ND BS+ve. Gabby Pineda tear following vomiting in the setting of alcohol use - continue PPI BID with taper to daily after 2 weeks. Instructions re: famotidine BID PRN for breakthrough. Instructions for ondansetron for breakthrough nausea. Extensive counseling re: triggering further injury including reduction of spicy foods, acidic foods, and alcohol use with avoidance of any irritant at least until GI follow up but recommended beyond. Mother in room with understanding of terms as is heading home from here for Thanksgiving break. Else see resident documentation as noted. Total attending physician time spent with this patient's care on the day of discharge: 45 minutes. Resident Activity Tracking Resident Involvement: Resident Care Provided Care Provided: Adult Hospital Medicine
--- NOTE | 2025-10-10 10:12 | Gastroenterology Progress Note ---
Date of Service October 10, 2025 Assessment & Plan (1) Gabby-Calabrese tear: Plan: Clinically without chest pain or further bleeding. Okay for discharge. Return if fevers chest pain shortness of breath persistent melena or vomiting. (2) Acute upper gastrointestinal bleeding: Plan: Hemoglobin stable at 11 Admission and Anticipated Discharge Date Admission Date: October 09, 2025 Subjective Gabby-Calabrese tear Dark stool overnight though no active bleeding. Hemoglobin stable. Patient feels well and back to normal. Can be discharged. Mechanical soft diet for a few days. He should be very careful with steak chicken and pork cut it small chew it well. I would treat him with an antacid pantoprazole for 2 months. Can likely stop after this. Prevention of acid reflux lifestyle factors reviewed minimize any nicotine caffeine alcohol or chocolate. Patient told return if chest pain further vomiting persistent melanotic stools weakness or dizziness. He does have 2 endoscopic clips. This should detach and fall off in the next 1 the 6 months. Patient should avoid MRI for the next 3 weeks. He has Cook type clips these are MRI conditional. MRI could be used after a month if required. Reviewed with patient and mother at bedside. Appreciate allow me participate in the care of this patient Physical Exam Physical Exam: Appears well no acute distress Vital stable afebrile Benign abdomen Results & Data Results & Data Vital Signs (Past 12 Hours) Vital Signs Temp Pulse Resp BP Pulse Ox O2 Del Method 10/10/25 07:23 36.6 C 10/10/25 07:13 77 10/10/25 07:00 54 L 15 99 Room Air 10/10/25 07:00 107/47 L 10/10/25 06:00 76 15 115/44 L 100 Room Air 10/10/25 05:01 63 14 109/52 L 98 Room Air 10/10/25 04:24 36.7 C 95/61 L 10/10/25 04:00 53 L 17 97 Room Air 10/10/25 03:00 60 13 107/48 L 97 Room Air 10/10/25 02:00 64 15 116/61 99 Room Air 10/10/25 01:00 59 L 13 109/61 100 Room Air 10/10/25 00:00 36.9 C 10/10/25 00:00 57 L 24 110/53 L 99 Room Air 10/10/25 00:00 57 L 10/09/25 23:00 70 19 121/74 99 Room Air PG Care Time/CCT Total # of Minutes Spent Total Time Spent with Patient: Total time spent is greater than 50% in coordination of care (as documented) at patient's floor/unit and/or counseling patient: Coding Level of Care Code 13162 SUB INP/OBS CARE 12/19MIN Diagnoses Gabby-Calabrese tear K22.6 Acute upper gastrointestinal bleeding K92.2
[2025-10-10 10:25] VITALS: BP 115/68; PULSE 57; RESP 17; TEMP 98.4; O2SAT 98
== END 2025-10-10 11:30 | disposition home or self-care (01) | DRG 370 ==
LOC: ED 02:47 → 1E 05:26 → SUATTDRO 05:26 → 1E 06:35 → 3E 10-10 09:19
DX: K22.6 Gastro-esophageal laceration-hemorrhage syndrome; Y90.3 Blood alcohol level of 60-79 mg/100 ml; D72.829 Elevated white blood cell count, unspecified; Z88.0 Allergy status to penicillin; F10.920 Alcohol use, unspecified with intoxication, uncomplicated; F17.290 Nicotine dependence, other tobacco product, uncomplicated; K92.2 Gastrointestinal hemorrhage, unspecified